=== PATIENT | male | born 1990 | race Caucasian/White ===

== ENCOUNTER → 2024-02-11 07:26 | Outpatient (REF) | payer OTHER, SELFPAY | LOC: EMG 07:26 | PROVIDERS: ATTENDING PHYSICIAN Physician Assistant Medical | DX: R20.0 Anesthesia of skin (principal) | CPT/HCPCS: 95886; 95911 ==

== ENCOUNTER 2024-06-21 09:47 | Emergency (ER) | payer OTHER, SELFPAY ==
[2024-06-21 09:59] VITALS: BP 141/97
--- NOTE | 2024-06-21 10:58 | ED.GENMED ---
History of Present Illness
General
Chief Complaint: Cardiac Symptoms
Time Seen by Provider: 06/21/24 10:41
History of Present Illness
History of Present Illness:
Patient is a 34-year-old man who is otherwise healthy plan to the emergency department with chest pressure and facial pressure. Patient is for the past 2 days has been having constant midsternal chest pressure for facial pressure and occasional
facial flushing. He states that this has been occurring all day long. It is not exertional. It is not pleuritic. This never happened to him before. He states that has been ongoing for the past 2 days and he was worried about his heart as he has
uncle was recently diagnosed with a aortic aneurysm so he wanted to be evaluated. This morning the pain started at 9 AM. He is only having some facial pressure right now. No neck pain. No radiation to the arms. No numbness tingling. No
weakness. He also stated he had palpitations a few days ago. No fevers or chills. No cough congestion. No URI symptoms. No recent sick contacts.
Past History
Past History
ED Past Medical History: None
Social History
Tobacco: Smoker
Alcohol: Occasional
Drug: None
Personal: Single
Living: with family
Employment: Employed
Phy Exam
Physical Exam
Physical Exam:
GENERAL: in no acute distress
HEENT: normocephalic, extraocular movements intact, moist oral mucosa, no facial tenderness
NECK: normal inspection
RESPIRATORY: no respiratory distress, clear to auscultation bilaterally
CARDIOVASCULAR: regular rate and rhythm, 2+ radial pulses bilaterally
ABDOMEN/: soft, non-distended, non-tender to palpation, no rebound or guarding
EXTREMITIES: non-tender, no edema/swelling
NEUROLOGIC: awake and alert, moves all extremities
SKIN: warm
Course
Orders/Labs/Results
Orders:
Orders
06/21/24 09:49
EKG [Electrocardiogram (*1)] Stat
Reason for Study: Chest Pain
EKG- Treatment ONCE
06/21/24 10:26
CMP [Comprehensive Metabolic Panel] Urgent
Complete Blood Count/With Diff Urgent
Troponin I Urgent
06/21/24 10:51
CR Chest - 2 Views Urgent
Comment:
Reason For Exam: cp
06/21/24 11:49
COVID-19 Antigen Urgent
Source: Nasal Swab
Magnesium Urgent
Thyroid Stimulating Hormone to Reflex [TSH Reflex To Free T4] Urgent
06/21/24 13:28
Troponin I Routine
Abnormal Lab Results
06/21/24
10:26
MCH 32.6 H pg
(27.0-31.0)
MCHC 37.3 H g/dL
(33.0-37.0)
MPV 10.7 H fL
(7.4-10.4)
Total Bilirubin 1.5 H mg/dl
(0.2-1.3)
06/21/24 10:26
06/21/24 10:26
Vital Signs
Initial and Last Documented VS:
Initial Vital Signs
Temp Pulse Resp BP Pulse Ox
98.7 F 82 17 141/97 99
06/21/24 09:59 06/21/24 09:59 06/21/24 09:59 06/21/24 09:59 06/21/24 09:59
Last Documented Vital Signs
Temp Pulse Resp BP Pulse Ox
98.7 F 82 17 141/94 100
06/21/24 09:59 06/21/24 09:59 06/21/24 09:59 06/21/24 11:50 06/21/24 12:00
MDM/Problems Addressed
Differential Diagnosis Includes:
34-year-old male with no past medical history presented to the emergency department with chest pressure and facial pressure that been ongoing for the past 2 days that worsened this morning around 9 AM. Vitals are unremarkable and exam is
reassuring. Unclear etiology of chest pressure/facial pressure. Could be secondary to viral URI versus metabolic derangement versus pneumonia. Palpitations could be secondary to thyroid disease which could also cause a flushing sensation.
History and exam not consistent with PE or dissection. Will check blood work including magnesium and thyroid. EKG per my interpretation normal sinus rhythm. Will obtain chest x-ray and COVID swab.
*Critical Care Note
Total Time (30-74mins, 75-104mins- exclusive of procedures): Not Applicable
Update Note
Update Note:
Blood work unremarkable. On reevaluation patient asymptomatic. Chest x-ray per my interpretation without any obvious infiltrate. Patient provided education and the importance of PCP follow-up. Will discharge at this time
ED Attending Note
-
Portions of this chart may have been created with voice recognition software.� Occasional wrong word or��sound alike� substitutions may have occurred due to the inherent limitations of voice recognition software.
Discharge Plan
Departure
Patient Disposition: Home (Routine Discharge)
Date of Disposition: 06/21/24
Time of Disposition: 14:28
Patient with high blood pressure during this ER visit?: No
Discharge Problem:
Chest pain
Instructions: Chest Pain (DC)
Prescriptions:
No Action
Zoloft
DAILY
Patient Comments:
pt. does not know dose, says he takes one and a half pills.
Referrals:
NONE,* [Family Provider] -
Activity Restrictions/Additional Instructions:
You were seen in the Emergency Department today for chest pressure and face pressure. While you were here we performed blood work, which was reassuring.
We would like for you to follow up with your primary care physician for further evaluation. If you experience fever, worsening of your symptoms, or develop any other new or concerning symptoms, please return to the Emergency Department immediately.
Please see the attached sheet for additional information.
Interventions
Interventions:
*Risk Screen - Suicide Last Done: 06/21/24 11:13
*General Assessment Last Done: 06/21/24 11:13
*Neglect/Abuse Screening Last Done: 06/21/24 11:13
ED- Fall Risk Assessment Last Done: 06/21/24 11:13
*ED COVID-19 Vaccine History Last Done: 06/21/24 11:13
ED- Pulmonary Assessment Last Done: 06/21/24 11:13
ED- Cardiac Assessment Last Done: 06/21/24 11:13
Discharge Date and Time
Print Language: MARSHALLESE
[2024-06-21 11:00] LABS: ALT (SGPT) 33 U/L (0-50); AST (SGOT) 27 U/L (17-59); Albumin 4.6 g/dl (3.5-5.0); Alkaline Phosphatase 85 U/L (38-126); Blood Urea Nitrogen 15 mg/dl (9-20); Calcium 10.1 mg/dl (8.4-10.2); Carbon Dioxide 28 mmol/L (22-30); Chloride 101 mmol/L (98-107); Glucose 99 mg/dl (70-99); Potassium 4.4 mmol/L (3.5-5.1); Sodium 135 mmol/L (135-145); Total Bilirubin 1.5 mg/dl (0.2-1.3); Total Protein 7.2 g/dl (6.3-8.2); eGFR > 60.00
[2024-06-21 11:03] LABS: Troponin I < 0.012 ng/ml
[2024-06-21 11:13] VITALS: BMI 24.8
[2024-06-21 11:23] LABS: % Eosinophils 1.8 % (0-6); % Immature Granulocytes 0.3 % (0-0.5); % Lymphocytes 21.4 % (20.5-51.1); % Monocytes 9.1 % (1.7-9.3); % Neutrophils 66.4 % (42.2-75.2); Absolute Basophils 0.1 10^3/uL (0-0.2); Absolute Eosinophils 0.1 10^3/uL (0-0.7); Absolute Lymphocytes 1.3 10^3/uL (1.2-3.4); Absolute Monocytes 0.6 10^3/uL (0.1-0.6); Hematocrit 45.1 % (39.0-52.0); Hemoglobin 16.8 g/dL (13.0-18.0); Mean Corp Hgb Conc. 37.3 g/dL (33.0-37.0); Mean Corpuscular Hgb 32.6 pg (27.0-31.0); Mean Corpuscular Volume 87.4 fL (80.0-94.0); Mean Platelet Volume 10.7 fL (7.4-10.4); Nucleated Red Blood Cells % 0 % (-); Platelet Count 213 10^3/uL (130-400); Red Blood Cell Count 5.16 10^6/uL (4.70-6.10); Red Cell Dist. Width 12.3 % (11.5-14.5)
[2024-06-21 11:50] VITALS: BP 141/94
[2024-06-21 12:11] LABS: COVID-19 Antigen Negative (Negative)
[2024-06-21 12:23] LABS: Magnesium 1.9 mg/dl (1.6-2.3)
[2024-06-21 14:06] LABS: Troponin I < 0.012 ng/ml
[2024-06-21 14:21] LABS: TSH Reflex To Free T4 0.79 uIU/ml (0.47-4.68)
[2024-06-21 14:34] VITALS: BP 140/83
== END 2024-06-21 14:35 | disposition home or self-care (01) ==
LOC: EMR 09:47
PROVIDERS: Emergency Medicine; EMERGENCY PHYSICIAN Student in an Organized Health Care Education/Training Program
DX: R07.89 Other chest pain (principal); R23.2 Flushing; Z11.52 Encounter for screening for COVID-19; F17.200 Nicotine dependence, unspecified, uncomplicated
CPT/HCPCS: 99284; 71046; 80053; 83735; 84443; 84484; 85025; 87811; 93005